=== PATIENT | female | born 1975 | race Hispanic/Latino ===

== ENCOUNTER 2022-05-23 09:18 | Emergency (ER) | payer SELFPAY ==
[2022-05-23] MEDS ORDERED: Albuterol 200 PUFF (6.7GM INHALER) ONE (10:05)
== END 2022-05-23 10:10 | disposition home or self-care (01) ==
LOC: ERS 09:18
DX: J45.901 Unspecified asthma with (acute) exacerbation (principal); F17.200 Nicotine dependence, unspecified, uncomplicated
CPT/HCPCS: 94664

== ENCOUNTER 2023-11-08 08:06 | Emergency (ER) | payer SELFPAY ==
[2023-11-08 08:53] LABS: #Basophils 0.1 thou/uL (0.0-0.2); #Eosinphils 0.2 thou/uL (0.0-0.7); #Monocytes 0.8 thou/uL (0.11-0.59); #Neutrophils 7.5 thou/uL (1.40-6.50); %Basophils 0.7 % (0.0-1.0); %Lymphocytes 12.7 % (21.0-51.0); %Monocytes 7.6 % (0.0-10.0); %Neutrophils 76.6 % (42.0-75.0); Hematocrit 41.9 % (36.0-47.0); Hemoglobin 12.5 g/dL (12.0-16.0); Mean Corpuscular HGB CONC 29.8 g/dL (32.0-36.0); Mean Corpuscular Hemoglobin 26.2 pg (27.0-31.0); Mean Corpuscular Volume 87.8 fl (78.0-98.0); Mean Platelet Volume 9.7 fL (7.4-10.4); Platelet Count 266 10x3/uL (130-400); RBC Distribution Width 16.2 % (11.5-14.5); Red Blood Cell (RBC) Count 4.77 mill/uL (4.20-5.40); White Blood Cell (WBC) Count 9.8 10x3/uL (4.8-10.8)
[2023-11-08 08:56] LABS: BHCG - Serum Negative (NEGATIVE); Pregs Control Background? CLEAR/WHITE (CLR/WHITE); Pregs Control Bar Appear? YES (CONTROL BAR)
[2023-11-08 09:14] LABS: ALT (SGPT) 19 U/L (8-55); AST (SGOT) 18 U/L (5-34); Albumin 3.8 g/dL (3.5-5.0); Alkaline Phosphatase 47 U/L (40-110); Anion Gap 13 mmol/L (10-20); BUN (Urea Nitrogen) 11 mg/dL (7.0-18.7); Bilirubin, Total 1.5 mg/dL (0.2-1.2); Calc. Creatinine Clearance 0 mL/min (70-130); Carbon Dioxide 27 mmol/L (22-29); Chloride 102 mmol/L (98-107); Estimated GFR 74; Glucose 131 mg/dL (70-105); Lipase 36 U/L (8-78); Potassium 4.2 mmol/L (3.5-5.1); Protein, Total 6.8 g/dL (6.0-8.3); Sodium 138 mmol/L (136-145)
[2023-11-08 09:40] LABS: Bacteria/HPF None Seen HPF (None Seen); Bilirubin Negative (Negative); Blood, Urine Negative (Negative); CAUTI Indications for Culture Pelvic or flank pain; Clarity Clear (Clear); Glucose, Urine (Dipstick) Normal (Negative); Ketone, Urine Negative (Negative); Leukocyte Negative Leu/uL (Negative); Nitrite Negative (Negative); Protein, Urine (Dipstick) 200 mg/dL (Neg-Trace); RBC/HPF 0-3 HPF (0-3); Specific Gravity, Urine 1.013 (1.002-1.036); Squamous Epithelial 0-3 HPF (0-3); Urobilinogen Normal mg/dL (Less than 2); WBC/HPF 0-3 HPF (0-3)
[2023-11-08 09:51] LABS: Urine Culture Reflex No No
== END 2023-11-08 11:00 | disposition home or self-care (01) ==
LOC: ERS 08:06
DX: R10.9 Unspecified abdominal pain (principal); J06.9 Acute upper respiratory infection, unspecified; J45.909 Unspecified asthma, uncomplicated; F17.200 Nicotine dependence, unspecified, uncomplicated
CPT/HCPCS: 36415; 71046; 80053; 81001; 83690; 84703; 85025; 96360

== ENCOUNTER 2023-11-17 11:16 | Emergency (ER) | payer SELFPAY ==
[2023-11-17 12:48] LABS: #Basophils 0.1 thou/uL (0.0-0.2); #Eosinphils 0.3 thou/uL (0.0-0.7); #Monocytes 0.6 thou/uL (0.11-0.59); %Basophils 0.7 % (0.0-1.0); %Eosinophils 2.6 % (0.0-10.0); %Lymphocytes 17.8 % (21.0-51.0); %Monocytes 6.2 % (0.0-10.0); %Neutrophils 72.2 % (42.0-75.0); Hematocrit 40.5 % (36.0-47.0); Hemoglobin 12.4 g/dL (12.0-16.0); Mean Corpuscular HGB CONC 30.6 g/dL (32.0-36.0); Mean Corpuscular Hemoglobin 26.6 pg (27.0-31.0); Mean Corpuscular Volume 86.9 fl (78.0-98.0); Mean Platelet Volume 9.4 fL (7.4-10.4); Platelet Count 280 10x3/uL (130-400); Red Blood Cell (RBC) Count 4.66 mill/uL (4.20-5.40); White Blood Cell (WBC) Count 9.7 10x3/uL (4.8-10.8)
[2023-11-17 12:59] LABS: BHCG - Serum Negative (NEGATIVE); Pregs Control Background? CLEAR/WHITE (CLR/WHITE); Pregs Control Bar Appear? YES (CONTROL BAR)
[2023-11-17 13:17] LABS: ALT (SGPT) 18 U/L (8-55); AST (SGOT) 20 U/L (5-34); Albumin 3.6 g/dL (3.5-5.0); Alkaline Phosphatase 39 U/L (40-110); Anion Gap 11 mmol/L (10-20); BUN (Urea Nitrogen) 15 mg/dL (7.0-18.7); Bilirubin, Total 0.6 mg/dL (0.2-1.2); Calc. Creatinine Clearance 0 mL/min (70-130); Calcium 8.6 mg/dL (7.8-10.44); Carbon Dioxide 29 mmol/L (22-29); Chloride 104 mmol/L (98-107); Estimated GFR 86; Globulin 3.2 g/dL (2.4-3.5); Glucose 105 mg/dL (70-105); Lipase 79 U/L (8-78); Potassium 4.1 mmol/L (3.5-5.1); Protein, Total 6.8 g/dL (6.0-8.3); Sodium 140 mmol/L (136-145)
[2023-11-17 13:58] LABS: Troponin I 0.026 ng/mL (< 0.028)
[2023-11-17 14:38] LABS: Bacteria/HPF None Seen HPF (None Seen); Bilirubin Negative (Negative); Blood, Urine Negative (Negative); CAUTI Indications for Culture Dysuria,urgency,freq; Clarity Clear (Clear); Glucose, Urine (Dipstick) Normal (Negative); Ketone, Urine Negative (Negative); Leukocyte 25 Leu/uL (Negative); Nitrite Negative (Negative); Protein, Urine (Dipstick) 70 mg/dL (Neg-Trace); RBC/HPF 0-3 HPF (0-3); Specific Gravity, Urine 1.013 (1.002-1.036); Squamous Epithelial 0-3 HPF (0-3); Urobilinogen Normal mg/dL (Less than 2); pH, Urine 5.5 (5.0-9.0)
[2023-11-17 14:39] LABS: Urine Culture Reflex No No
== END 2023-11-17 14:48 | disposition home or self-care (01) ==
LOC: ERS 11:16
DX: I16.0 Hypertensive urgency (principal); I50.9 Heart failure, unspecified; F17.200 Nicotine dependence, unspecified, uncomplicated
CPT/HCPCS: 36415; 71045; 74176; 80053; 81001; 83690; 83880; 84484; 84703; 85025; 93005

== ENCOUNTER 2023-11-17 16:33 | Inpatient (IN) | payer SELFPAY ==
[2023-11-17] MEDS ORDERED: Furosemide 40 MG (4 mL) VIAL ONE (18:13)
[2023-11-17] MEDS ORDERED: Nitroglycerin 2% Ointment 1 INCH/1 GM Packet ONE (18:13)
[2023-11-17] MEDS ORDERED: Ondansetron PF 4 MG/2 ML Vial IVP PRN (18:34)
[2023-11-17 18:53] LABS: Troponin I 0.029 ng/mL (< 0.028)
[2023-11-17] MEDS ORDERED: Sodium Chloride 0.9% 100 ML ONE (20:24)
[2023-11-17] MEDS ORDERED: cefTRIAXone (ROCEPHIN) 1 GM VIAL ONE (20:24)
[2023-11-17] MEDS ORDERED: Acetaminophen 325 MG TAB ONE (20:25)
[2023-11-17] MEDS: cefTRIAXone\\ROCEPHIN 1 GM in Sodium Chloride 0.9% 100 ML IVPB SCH (20:30)
[2023-11-17] MEDS: Acetaminophen 325 MG TAB PO PRN (20:31)
[2023-11-17] MEDS: Ipratropium/Albuterol 3 ML NEB NEB SCH (22:43)
[2023-11-17] MEDS: Montelukast Sodium 10 mg Tablet PO SCH (22:57)
[2023-11-17] MEDS: Famotidine/PF 20 mg/2ml Vial SLOW IVP SCH (22:57)
[2023-11-17 23:41] LABS: Troponin I 0.019 ng/mL (< 0.028)
[2023-11-18 00:10] VITALS: BMI 51.9
[2023-11-18 05:59] LABS: #Basophils 0.1 thou/uL (0.0-0.2); #Eosinphils 0.2 thou/uL (0.0-0.7); #Monocytes 0.6 thou/uL (0.11-0.59); #Neutrophils 5.5 thou/uL (1.40-6.50); %Basophils 0.6 % (0.0-1.0); %Eosinophils 2.7 % (0.0-10.0); %Lymphocytes 18.1 % (21.0-51.0); %Monocytes 7.1 % (0.0-10.0); %Neutrophils 70.9 % (42.0-75.0); Hemoglobin 12.1 g/dL (12.0-16.0); Mean Corpuscular HGB CONC 30.3 g/dL (32.0-36.0); Mean Corpuscular Hemoglobin 26.8 pg (27.0-31.0); Mean Corpuscular Volume 88.7 fl (78.0-98.0); Mean Platelet Volume 9.5 fL (7.4-10.4); Platelet Count 298 10x3/uL (130-400); Red Blood Cell (RBC) Count 4.51 mill/uL (4.20-5.40); White Blood Cell (WBC) Count 7.7 10x3/uL (4.8-10.8)
[2023-11-18 06:35] LABS: Anion Gap 11 mmol/L (10-20); BUN (Urea Nitrogen) 13 mg/dL (7.0-18.7); Calc. Creatinine Clearance 152 mL/min (70-130); Calcium 8.7 mg/dL (7.8-10.44); Carbon Dioxide 31 mmol/L (22-29); Chloride 102 mmol/L (98-107); Estimated GFR 84; Glucose 103 mg/dL (70-105); Potassium 4.2 mmol/L (3.5-5.1); Sodium 140 mmol/L (136-145)
[2023-11-18] MEDS: Furosemide 40 MG (4 mL) VIAL SLOW IVP SCH ×2 (09:45→20:18)
[2023-11-18] MEDS: NIFEdipine XL 60 MG ER.TAB PO SCH (09:45)
[2023-11-18] MEDS: Enoxaparin 40 MG (0.4 mL) SYRINGE SC SCH (09:45)
[2023-11-18] MEDS: Carvedilol 6.25 MG TAB PO SCH (15:39)
[2023-11-18] MEDS: Ipratropium/Albuterol 3 ML NEB NEB PRN (16:37)
[2023-11-18] MEDS: Valsartan 80 MG TAB PO SCH (20:18)
[2023-11-18] MEDS: Ipratropium/Albuterol 3 ML NEB NEB SCH (22:55)
[2023-11-19] MEDS: Lidocaine 2% Viscous Solution 10 ML, Aluminum & Magnesium Hydroxide 30 ML SSW SCH (00:01)
[2023-11-19 04:07] LABS: #Basophils 0.1 thou/uL (0.0-0.2); #Eosinphils 0.2 thou/uL (0.0-0.7); #Monocytes 0.6 thou/uL (0.11-0.59); #Neutrophils 6.1 thou/uL (1.40-6.50); %Basophils 0.6 % (0.0-1.0); %Eosinophils 2.7 % (0.0-10.0); %Lymphocytes 13.6 % (21.0-51.0); %Monocytes 7.7 % (0.0-10.0); %Neutrophils 74.9 % (42.0-75.0); Hemoglobin 12.6 g/dL (12.0-16.0); Mean Corpuscular Hemoglobin 26.3 pg (27.0-31.0); Mean Corpuscular Volume 87.5 fl (78.0-98.0); Mean Platelet Volume 9.4 fL (7.4-10.4); Platelet Count 322 10x3/uL (130-400); White Blood Cell (WBC) Count 8.2 10x3/uL (4.8-10.8)
[2023-11-19 05:07] LABS: Anion Gap 11 mmol/L (10-20); BUN (Urea Nitrogen) 15 mg/dL (7.0-18.7); Calc. Creatinine Clearance 131 mL/min (70-130); Calcium 9.3 mg/dL (7.8-10.44); Carbon Dioxide 32 mmol/L (22-29); Chloride 98 mmol/L (98-107); Estimated GFR 73; Glucose 117 mg/dL (70-105); Potassium 3.7 mmol/L (3.5-5.1); Sodium 137 mmol/L (136-145)
[2023-11-19] MEDS ORDERED: Regadenoson 0.4 MG/5 ML SYRINGE ONE (10:47)
[2023-11-19] MEDS: Valsartan 80 MG TAB PO SCH (12:06)
[2023-11-19] MEDS: Famotidine 20 MG TAB PO SCH (12:07)
[2023-11-19] MEDS: Carvedilol 6.25 MG TAB PO SCH (12:07)
[2023-11-19 15:52] VITALS: BP 123/71; TEMP 98.3
[2023-11-20] MEDS ORDERED: Spironolactone 25 MG TAB PO SCH (08:00)
== END 2023-11-19 17:01 | disposition home or self-care (01) | DRG 291 ==
LOC: ERS 16:33 → ERHOLD 18:17 → 2SW 22:08 → OBSVTOIN 11-18 14:09
PROVIDERS: ADMIT Internal Medicine; ATTEND Internal Medicine
DX: I11.0 Hypertensive heart disease with heart failure (principal); I50.23 Acute on chronic systolic (congestive) heart failure; J45.20 Mild intermittent asthma, uncomplicated; G47.33 Obstructive sleep apnea (adult) (pediatric); I42.0 Dilated cardiomyopathy; Z86.16 Personal history of COVID-19; Z90.49 Acquired absence of other specified parts of digestive tract; Z87.891 Personal history of nicotine dependence; Z79.899 Other long term (current) drug therapy
CPT/HCPCS: 36415; 78452; 80048; 84443; 85025; 93017; 93306; 94640; 96372; 96374; 96375; 96376; A9502; G0378; J0696; J1650; J1940; J2785; J3490; J7620; S0028

== ENCOUNTER 2024-11-03 20:10 | Emergency (ER) | payer SELFPAY | END 2024-11-03 21:25 | disposition home or self-care (01) | LOC: ERS 20:10 | DX: S62.525A Nondisplaced fracture of distal phalanx of left thumb, initial encounter for closed fracture (principal); F17.200 Nicotine dependence, unspecified, uncomplicated; W22.8XXA Striking against or struck by other objects, initial encounter; Y93.02 Activity, running | CPT/HCPCS: 99283 ==

== ENCOUNTER 2025-06-09 05:35 | Emergency (ER) | payer SELFPAY ==
[2025-06-09 07:23] LABS: #Basophils 0.04 10x3/uL (0.0-0.2); #Eosinophils 0.15 10x3/uL (0.0-0.7); #Monocytes 0.55 10x3/uL (0.11-0.59); #Neutrophils 4.59 10x3/uL (1.40-6.50); %Basophils 0.6 % (0.0-1.0); %Eosinophils 2.4 % (0.0-10.0); %Lymphocytes 14.5 % (21.0-51.0); %Monocytes 8.8 % (0.0-10.0); %Neutrophils 73.2 % (42.0-75.0); Hematocrit 44.4 % (36.0-47.0); Hemoglobin 13.5 g/dL (12.0-16.0); Mean Corpuscular Hemoglobin 28.5 pg (27.0-31.0); Mean Corpuscular Volume 93.9 fL (78.0-98.0); Platelet Count 193 10x3/uL (130-400); Red Blood Cell (RBC) Count 4.73 mill/uL (4.20-5.40); White Blood Cell (WBC) Count 6.27 10x3/uL (4.8-10.8)
[2025-06-09 07:44] LABS: ALT (SGPT) 49 U/L (Less than 34); AST (SGOT) 49 U/L (11-34); Albumin 3.6 g/dL (3.1-4.5); Alkaline Phosphatase 55 U/L (40-110); Anion Gap 12 mmol/L (10-20); BUN (Urea Nitrogen) 11 mg/dL (9.8-20.1); Bilirubin, Total 0.5 mg/dL (0.3-1.2); Calc. Creatinine Clearance 0 mL/min (70-130); Calcium 8.7 mg/dL (7.8-10.44); Carbon Dioxide 32 mmol/L (22-29); Chloride 98 mmol/L (98-107); Globulin 3.4 g/dL (2.4-3.5); Glucose 128 mg/dL (70-105); Potassium 4.4 mmol/L (3.5-5.1); Sodium 138 mmol/L (136-145)
== END 2025-06-09 09:20 | disposition home or self-care (01) ==
LOC: ERS 05:35
DX: B34.9 Viral infection, unspecified (principal); E11.9 Type 2 diabetes mellitus without complications; F17.200 Nicotine dependence, unspecified, uncomplicated
CPT/HCPCS: 71045; 80053; 83880; 84484; 85025; 87428; 93005; J7620